=== PATIENT | male | born 1985 | race American Indian/Alaskan Native ===

== ENCOUNTER 2020-05-16 15:29 | Emergency (ER) | payer SELFPAY ==
[2020-05-16 15:43] VITALS: BP 158/93
== END 2020-05-16 19:00 | disposition left against medical advice (07) ==
LOC: ED 15:29
DX: F10.10 Alcohol abuse, uncomplicated (principal); Z53.21 Procedure and treatment not carried out due to patient leaving prior to being seen by health care provider